=== PATIENT | female | born 1985 | race Two or more races ===

== ENCOUNTER 2017-10-09 22:08 | Inpatient (IN) | payer OTHER ==
[~2017-10-09] VITALS: Ht 162.6 cm; Wt 70.3 kg
--- NOTE | 2017-10-10 00:18 | NUR ---
32 YO FEMALE BB SELF. PATIENT IS ALERT AND ORIENTED X 3, C/O LEFT WRIST PAIN/ REDNESS/SWELLING. PMS DISTAL TO PAIN SITE WNL. AWAITING ORDERS FROM PROVIDER, WILL CONTINUE TO MONITOR
--- NOTE | 2017-10-10 00:19 | NUR ---
PATIENT AMBULATED TO ER BED 10 WITH STEADY GAIT, SKIN WARM AND DRY, RESP EVEN AND UNLABORED. AWAITING ORDERS FROM PROVIDER, WILL CONTINUE TO MONITOR
[2017-10-10] MEDS ORDERED: MORPHINE SULFATE INJ 2 MG/ML DISP.SYRIN IV ONE (00:30)
[2017-10-10] MEDS ORDERED: PIPERACILLIN /TAZOBACTAM 3.375 G in IV D5W 50 ML IV ONE (00:30)
[2017-10-10] MEDS ORDERED: IV NS 0.9% 1,000 ML BAG IV ONE (00:30)
[2017-10-10] MEDS ORDERED: ONDANSETRON HCL/PF 4 MG/2 ML VIAL IVP ONE (00:30)
[2017-10-10] MEDS ORDERED: VANCOMYCIN 1 GM in IV D5W 250 ML IV ONE ×5 (00:30→02:00)
--- NOTE | 2017-10-10 00:30 | NUR ---
YAKOV NG IS AT THE BEDSIDE SPEAKING TO THE PT.
--- NOTE | 2017-10-10 00:36 | NUR ---
PT AMBULATED TO THE BATHROOM WITH A STEADY GAIT. PT TRYING TO GIVE A URINE SAMPLE.
[2017-10-10] MEDS ORDERED: ONDANSETRON HCL/PF 4 MG/2 ML VIAL ONE ×2 (00:38→00:43)
[2017-10-10] MEDS ORDERED: MORPHINE SULFATE INJ 4 MG/ML DISP.SYRIN ONE ×2 (00:39→00:43)
[2017-10-10] MEDS ORDERED: PIPERACILLIN /TAZOBACTAM 3.375 G VIAL IV ONE ×2 (00:39→00:43)
[2017-10-10] MEDS ORDERED: VANCOMYCIN 1 GM VIAL ONE ×2 (00:39→00:43)
[2017-10-10] MEDS ORDERED: ACETAMINOPHEN ES 500 MG TABLET ONE ×2 (00:40→00:43)
--- NOTE | 2017-10-10 00:50 | NUR ---
URINE COLLECTED. SENT TO LAB
--- NOTE | 2017-10-10 00:52 | NUR ---
WOUNC CULTURE FOR LEFT WRIST COLLECTED. CALLED LAB FOR ACIDIZER WATER WELL.
--- NOTE | 2017-10-10 00:54 | NUR ---
RADIOLOGY AT BEDSIDE FOR HAND XR
[2017-10-10] MEDS ORDERED: ACETAMINOPHEN 325 MG TABLET PO ONE (01:00)
[2017-10-10 01:01] LABS: BASOPHILS # (AUTO) 0.1 /CMM (0.0-0.2); BASOPHILS % (AUTO) 0.5 % (0.0-2.0); EOSINOPHILS % (AUTO) 0.2 % (0.0-6.0); HEMATOCRIT 36 % (33-45); HEMOGLOBIN 11.9 g/dL (11.5-14.8); LYMPHOCYTES # (AUTO) 1.7 /CMM (0.8-4.8); LYMPHOCYTES % (AUTO) 10.8 % (20.0-44.0); MEAN CORPUSCULAR HEMOGLOBIN 28 PG (26.0-33.0); MEAN CORPUSCULAR HGB CONC 33 g/dl (31.0-36.0); MEAN CORPUSCULAR VOLUME 84 fL (82-100); MONOCYTES # (AUTO) 0.9 /CMM (0.1-1.30); MONOCYTES % (AUTO) 5.9 % (2.0-12.0); NEUTROPHILS # (AUTO) 13.2 /CMM (1.8-8.9); NEUTROPHILS % (AUTO) 82.6 % (43.0-81.0); PLATELET COUNT (AUTO) 254 /CMM (150-450); RDW COEFFICIENT OF VARIATION 13.8 (11.5-15.0); RED BLOOD CELL COUNT(AUTO) 4.26 MIL/uL (4.0-5.2)
[2017-10-10 01:06] LABS: APPEARANCE,URINE CLOUDY (CLEAR); BILIRUBIN,URINE 1+ (NEGATIVE); BLOOD, URINE 3+ Ery/uL (NEGATIVE); KETONES,URINE 1+ (NEGATIVE); LEUKOCYTE ESTERASE ,URINE TRACE (NEGATIVE); NITRITE, URINE NEGATIVE (NEGATIVE); PROTEIN,URINE 1+ mg/dl (NEGATIVE); UGLUCOSE NEGATIVE (NEGATIVE); UROBILINOGEN,URINE 0.2 EU/dL (0.2)
[2017-10-10 01:07] LABS: COLOR,URINE DARK YELLOW (YELLOW)
[2017-10-10 01:10] LABS: CALCIUM, SERUM 8.5 mg/dL (8.5-10.1); CREATININE 0.9 mg/dL (0.6-1.3); POTASSIUM 3.2 mmol/L (3.5-5.1)
[2017-10-10 01:11] LABS: BACTERIA,URINE Many /HPF (None Seen); CALCIUM OXALATE CRYSTALS,UR Few /HPF (None Seen); RBC,URINE TOO NUMEROUS TO COUN /HPF (0-2); SQUAMOUS EPITHELIAL CELL,UR Many /HPF (None Seen)
[2017-10-10 01:16] LABS: ALBUMIN 3.8 g/dL (3.4-5.0); BILIRUBIN,DIRECT 0.1 mg/dL (0.0-0.2); BILIRUBIN,TOTAL 0.5 mg/dL (0.2-1.0); TOTAL PROTEIN, SERUM 7.8 g/dL (6.4-8.2)
--- NOTE | 2017-10-10 01:18 | NUR ---
DR. GAYATHRI JUAREZ PEGED PER ER MD ORDER.
--- NOTE | 2017-10-10 01:20 | NUR ---
ER TALKING TO DR. GAYATHRI JUAREZ REGARDING PT ADMISSION.
--- NOTE | 2017-10-10 01:20 | NUR ---
CALLED FOR M/S BED
[2017-10-10] MEDS ORDERED: HYDROMORPHONE INJ 0.5 MG/0.5 ML SYRINGE ONE (01:24)
--- NOTE | 2017-10-10 01:27 | NUR ---
REPORT CALLED TO M/S LIYA JORDAN.
[2017-10-10] MEDS ORDERED: MAG HYDROX/AL HYDROX/SIMETH 30 ML UDC PO PRN (01:30)
[2017-10-10] MEDS ORDERED: HYDROMORPHONE 1 MG/1 ML DISP.SYRIN IV ONE (01:30)
[2017-10-10] MEDS ORDERED: VANCOMYCIN 1 GM in IV D5W 250 ML IV SCH (01:30)
[2017-10-10] MEDS ORDERED: MAGNESIUM HYDROXIDE 30 ML UDC PO PRN (01:30)
[2017-10-10] MEDS ORDERED: ONDANSETRON HCL/PF 4 MG/2 ML VIAL IVP PRN (01:30)
[2017-10-10] MEDS ORDERED: HYDROCODONE/APAP 5/325MG 1 EACH TABLET PO PRN (01:30)
[2017-10-10] MEDS ORDERED: ACETAMINOPHEN 325 MG TABLET PO PRN (01:30)
--- NOTE | 2017-10-10 01:44 | NUR ---
PT TRANSFERRED TO MS FLOOR.
--- NOTE | 2017-10-10 01:55 | NUR ---
MS2/RN RECEIVE PATIENT FROM [facility].. [facility]. PATIENT SLEEPING AT THIS TIME, AROUSABLE, APPEAR COMFORTABLE, NO SIGNS OF DISTRESS NOTED, VANCOMYCIN IS INFUSING, UNABLE TO OBTAIN ADMISSION INFORMATIONS FROM THE PATIENT AT THIS TIME SHE REFUSES TO ANSWER QUESTIONS DUE TO SLEEPINESS/LETHARGY WILL TRY AGAIN LATER WHEN SHE IS MORE AWAKE, MADE COMFORTABLE IN BED, PLACED CALL LIGHT IN REACH. WILL MONITOR.
[2017-10-10] MEDS: IV NS 0.9% 1,000 ML IV PRN ×2 (02:28→19:55)
[2017-10-10] MEDS ORDERED: PIPERACILLIN /TAZOBACTAM 2.25 G VIAL IV ONE (03:11)
[2017-10-10] MEDS ORDERED: PIPERACILLIN /TAZOBACTAM 4.5 G in IV NS 0.9% 50 ML IV SCH (06:00)
--- NOTE | 2017-10-10 06:09 | NUR ---
MS2/RN PATIENT STILL SLEEPING AT THIS TIME, AROUSABLE, APPEAR COMFORTABLE, NO SIGNS OF DISTRESS NOTED, ALL NEEDS ATTENDED AT THIS TIME. UNABLE TO OBTAIN ADMISSION INFORMATION, UNABLE TO ASSESS SKIN PATIENT ASLEEP ALL THE SINCE ARRIVAL TO THE UNIT. WILL ENDORSE.
--- NOTE | 2017-10-10 06:48 | NUR ---
MS2/RN ABLE TO TAKE PICTURE OF THE SWELLING OF THE LEFT HAND BUT REFUSED STILL REFUSED PHYSICAL ASSESSMENT AT THIS TIME. WILL ENDORSE.
--- NOTE | 2017-10-10 07:30 | NUR ---
RN MS NOTES PT IN BED, ASLEEP, RESPIRATIONS NORMAL AND NOT LABORED, EASY TO AROUSE, NO COMPLAINT OF PAIN AT THIS TIME, RESPISRATIONS NORMAL AND NOT LABORED, IV FLUIDS INFUSING WELL, CALL LIGHT PLACED WITHIN EASY REACH.
[2017-10-10 08:00] VITALS: BP 103/65
--- NOTE | 2017-10-10 08:00 | NUR ---
RN MS NOTES PT IN BED, CRYING, GIRLFRIEND AT BEDSIDE, COMPLAINING OF PAIN AT LEFT HAND BUT REFUSES ANY PAIN MEDICATION AT THIS TIME, PT CURSING AND USING THE "F" WORD A LOT OF TIMES, EXPLAINED PLAN OF CARE TO THE PT, EXPLAINED RISKS AND BENEFITS OF RECEIVING IV ATB, AFTER A WHILE PT CALMED DOWN AND TOOK A REST IN BED.
[2017-10-10] MEDS ORDERED: FEE PK DOSING 1 MIN EA MC ONE (08:21)
[2017-10-10] MEDS: VANCOMYCIN 0.75 GM in IV D5W 250 ML IV SCH ×2 (10:04→19:46)
[2017-10-10] MEDS: POTASSIUM CHLORIDE 20 MEQ TAB.PRT.SR PO SCH ×2 (11:26→12:12)
--- NOTE | 2017-10-10 13:00 | NUR ---
RN MS NOTES PT IN BED, ASLEEP, NO SIGN OF PAIN OR DISTRESS, ACCOMPANIED PT TO SMOKE EARLIER, PT INFORMED OF RISKS AND BENEFITS, INFORMED OF HOSPITAL POLICY REGARDING SMOKING, VERBALIZED UNDERSTANDING, PT SIGNED SMOKING WAIVER FORM, IV ATB GIVEN ORDERED, STILL WITH REDNESS AND SWELLING TO LEFT HAND, WITH MINIMAL DRAIN NOTED, DRY DRESSING APPLIED, CALL LIGHT WITHIN REACH.
[2017-10-10] MEDS: PIPERACILLIN /TAZOBACTAM 3.375 G in IV D5W 50 ML IV SCH ×3 (13:35→23:55)
[2017-10-10 16:00] VITALS: BP 104/59
--- NOTE | 2017-10-10 18:00 | NUR ---
RN MS NOTES PT STATED THAT SHE WANTS TO GO AGAINST MEDICAL ADVICE, PT AGITATED STATED THAT SHE IS NOT GETTING CARE IN THIS HOSPITAL, EXPLAINED PLAN OF CARE TO THE PT SEVERAL TIMES BUT STILL SAYS THAT NOBODY IS DOING SOMETHING FOR HER HAND, PT DOES NOT WANT TO SIGN AMA FORM, IV LINE TAKEN OUT, PT PREPARED TO LEAVE, EXPLAINED AGAIN THE PLAN OF CARE TO THE PT, PT CALMED DOWN AND SAID SHE WILL STAY, MONITORED PT CLOSELY.
--- NOTE | 2017-10-10 19:53 | NUR ---
MS2/RN C/O PAIN 03/29 LEFT WRIST, MEDICATED WITH NORCO 1 TAB PO ORDERED. WILL MONITOR.
[2017-10-10 20:00] VITALS: BP 102/76
--- NOTE | 2017-10-10 22:10 | NUR ---
NS2/RN PATIENT IS SLEEPING AT THIS TIME, AROUSES EASILY, APPEAR COMFORTABLE, NO DISTRESS NOTED, CALL LIGHT IN REACH. WILL CONTINUE TO MONITOR.
[2017-10-11] MEDS: VANCOMYCIN 0.75 GM in IV D5W 250 ML IV SCH (03:03)
[2017-10-11] MEDS: IV NS 0.9% 1,000 ML IV PRN (03:08)
[2017-10-11] MEDS: PIPERACILLIN /TAZOBACTAM 3.375 G in IV D5W 50 ML IV SCH (05:42)
[2017-10-11 06:27] LABS: BASOPHILS % (AUTO) 0.5 % (0.0-2.0); EOSINOPHILS # (AUTO) 0.1 /CMM (0.0-0.7); EOSINOPHILS % (AUTO) 1.2 % (0.0-6.0); HEMATOCRIT 31 % (33-45); HEMOGLOBIN 10.5 g/dL (11.5-14.8); MEAN CORPUSCULAR HEMOGLOBIN 29 PG (26.0-33.0); MEAN CORPUSCULAR HGB CONC 34 g/dl (31.0-36.0); MEAN CORPUSCULAR VOLUME 86 fL (82-100); MONOCYTES # (AUTO) 0.5 /CMM (0.1-1.30); MONOCYTES % (AUTO) 8.8 % (2.0-12.0); NEUTROPHILS # (AUTO) 3.3 /CMM (1.8-8.9); NEUTROPHILS % (AUTO) 55.5 % (43.0-81.0); PLATELET COUNT (AUTO) 195 /CMM (150-450); RDW COEFFICIENT OF VARIATION 14.1 (11.5-15.0); RED BLOOD CELL COUNT(AUTO) 3.65 MIL/uL (4.0-5.2)
[2017-10-11 06:52] LABS: CALCIUM, SERUM 7.7 mg/dL (8.5-10.1); CREATININE 0.6 mg/dL (0.6-1.3); MAGNESIUM 2.1 mg/dL (1.8-2.4); PHOSPHORUS 3.2 mg/dL (2.5-4.9); POTASSIUM 3.9 mmol/L (3.5-5.1)
[2017-10-11 06:59] LABS: THYROID STIMULATING HORMONE 0.619 uIU/mL (0.358-3.74)
--- NOTE | 2017-10-11 07:28 | NUR ---
MS2/RN PATIENT STILL SLEEPING AT THIS TIME, AROUSABLE, APPEAR COMFORTABLE, NO SIGNS OF DISTRESS NOTED, CALL LIGHT IN REACH. ALL NEEDS ATTENDED AT THIS TIME. WILL CONTINUE TO MONITOR.
[2017-10-11 08:00] VITALS: BP 119/68
--- NOTE | 2017-10-11 11:20 | NUR ---
RN MS NOTES PT SEEN BY DR. LUCAS, PT DENIES PAIN, NOT IN DISTRESS, DISCHARGE ORDER GIVEN, DISCHARGE AND MEDICATION INSTRUCTIONS PROVIDED TO PT, PT TO FOLLOW UP WITH DR. LUCAS [facility], VERBALIZED UNDERSTANDING, PRESCRIPTION PROVIDED TO PT, BELONGINGS ACCOUNTED FOR, PT REFUSED BODY CHECK AND PHOTOS OF LEFT HAND, OFFERED FLU SHOT BUT PT REFUSED WELL, LEFT IN STABLE CONDITION, ACCOMPANIED BY FRIEND.
[2017-10-11] MEDS ORDERED: SULF1TAB48 PO (11:43)
== END 2017-10-11 11:20 | disposition home or self-care (01) | DRG 383 ==
LOC: ER 22:08 → MEDSG2 10-10 01:29
DX: L03.114 Cellulitis of left upper limb (principal); F15.10 Other stimulant abuse, uncomplicated; E66.9 Obesity, unspecified; F17.210 Nicotine dependence, cigarettes, uncomplicated; Z68.26 Body mass index [BMI] 26.0-26.9, adult
CPT/HCPCS: 36415; 73110; 73130-TC; 80048-TC; 80061-TC; 80076-TC; 80202-TC; 81000-TC; 83605-TC; 83735-TC; 84100-TC; 84443-TC; 84703-TC; 85025-TC; 87040-TC; 87081-TC; 87086-TC; A4216; A4606; J2270; J2405; J2543; J3370; J7030; J7060; Z7610

== ENCOUNTER 2020-02-09 23:55 | Emergency (ER) | payer MEDICAID, OTHER ==
[~2020-02-09] VITALS: Ht 162.6 cm; Wt 63.5 kg
[~2020-02-09 23:55] MED LIST: SULF1TAB48 PO
[2020-02-10 00:15] VITALS: BP 142/86
== END 2020-02-10 02:37 | disposition home or self-care (01) ==
LOC: ER 23:58
DX: H92.01 Otalgia, right ear (principal)

== ENCOUNTER 2020-02-15 02:21 | Emergency (ER) | payer MEDICAID ==
[~2020-02-15] VITALS: Ht 165.1 cm; Wt 63.5 kg
--- NOTE | 2020-02-15 02:56 | NUR ---
PATIENT CAME TO ER BED 11 C/O RIGHT EAR PAIN. PATIENT STATES THAT SHE BURNED HER RIGHT EAR WITH A CURLING IRON AND IT FELT WORSE. PATIENT STATES THAT SHE TOOK TRAMADOL FOR PAIN WITHOUT RELIEF. AREA HAS A BURN WOUND ON THE ANTIHELIX AND ALFONSO. NO BLEEDING FROM THE SITE. NO SWELLING NOTED. AAOX4. NO SOB. BREATHING EVENLY AND UNLABORED ON ROOM AIR.
[2020-02-15] MEDS ORDERED: KETOROLAC TROMETHAMINE INJ 30 MG/ML VIAL IM ONE (03:00)
[2020-02-15] MEDS ORDERED: KETOROLAC TROMETHAMINE 15 MG/ML VIAL ONE (03:02)
[2020-02-15 03:27] VITALS: BP 132/76
--- NOTE | 2020-02-15 03:27 | NUR ---
Patient discharged to home in stable condition. Written and verbal after care instructions given. Patient verbalizes understanding of instruction.
== END 2020-02-15 03:28 | disposition home or self-care (01) ==
LOC: ER 02:22
DX: H66.91 Otitis media, unspecified, right ear (principal); H72.91 Unspecified perforation of tympanic membrane, right ear; H60.91 Unspecified otitis externa, right ear; F17.200 Nicotine dependence, unspecified, uncomplicated; Z79.899 Other long term (current) drug therapy
CPT/HCPCS: 96372; 99283; J1885

== ENCOUNTER → 2021-01-31 | Emergency (ER) | payer OTHER ==
[~2021-01-31] VITALS: Ht 165.1 cm; Wt 70.8 kg
[~2021-01-31] MED LIST changes: +CEPH500C2 PO; +IV NS 0.9% 1,000 ML BAG IV ONE; +ONDA4TAB11 PO; +ONDANSETRON HCL/PF 4 MG/2 ML VIAL IVP ONE; +ONDANSETRON HCL/PF 4 MG/2 ML VIAL ONE
--- NOTE | 2021-01-31 18:25 | NUR ---
[id number] OFFICE C/O NAUSEA AND VOMITING X 2 DAYS. STS FEELING DEHYDRATED AND MIGHT BE . PATIENT A/OX4, RUDE TO STAFF. BREATHING EVEN AND UNLABORED, NO SOB NOTED.
--- NOTE | 2021-01-31 18:48 | NUR ---
iv line established, blood drawn and sent to lab.
--- NOTE | 2021-01-31 18:50 | NUR ---
URINE SENT TO LAB.
[2021-01-31 18:51] LABS: BASOPHILS # (AUTO) 0.1 /CMM (0.0-0.2); BASOPHILS % (AUTO) 0.5 % (0.0-2.0); EOSINOPHILS % (AUTO) 0.2 % (0.0-6.0); HEMATOCRIT 42 % (33-45); HEMOGLOBIN 13.4 g/dL (11.5-14.8); LYMPHOCYTES # (AUTO) 1.4 /CMM (0.8-4.8); LYMPHOCYTES % (AUTO) 11.6 % (20.0-44.0); MEAN CORPUSCULAR HGB CONC 32 g/dl (31.0-36.0); MEAN CORPUSCULAR VOLUME 88 fL (82-100); MONOCYTES # (AUTO) 0.7 /CMM (0.1-1.30); MONOCYTES % (AUTO) 5.6 % (2.0-12.0); NEUTROPHILS # (AUTO) 10.1 /CMM (1.8-8.9); NEUTROPHILS % (AUTO) 82.1 % (43.0-81.0); PLATELET COUNT (AUTO) 281 /CMM (150-450); RED BLOOD CELL COUNT(AUTO) 4.73 MIL/uL (4.0-5.2); WHITE BLOOD COUNT (AUTO) 12.3 K/uL (4.3-11.0)
--- NOTE | 2021-01-31 18:52 | NUR ---
IV #18 GAUGE MARIA R, IV NS 1,000 NS ORDER ADMIN, STATED FEELS DEHYDRATED HAS HEAD ACHE, IS TIRED, BED LOW TO FLOOR, MADE COMFORTABLE , WILL CONTINUE TO MONITOR
[2021-01-31 19:03] LABS: CALCIUM, SERUM 9.3 mg/dL (8.5-10.1); CREATININE 0.8 mg/dL (0.6-1.3); POTASSIUM 3.9 mmol/L (3.5-5.1)
[2021-01-31 19:09] LABS: ALBUMIN 4.2 g/dL (3.4-5.0); BILIRUBIN,DIRECT 0.1 mg/dL (0.0-0.2); BILIRUBIN,TOTAL 0.4 mg/dL (0.2-1.0)
[2021-01-31 19:10] LABS: BILIRUBIN,URINE Negative (NEGATIVE); COLOR,URINE DARK YELLOW (YELLOW); LEUKOCYTE ESTERASE ,URINE Negative (NEGATIVE); NITRITE, URINE Positive (NEGATIVE); PROTEIN,URINE 30 mg/dl (NEGATIVE); UGLUCOSE Negative (NEGATIVE); UROBILINOGEN,URINE 0.2 EU/dL (0.2)
--- NOTE | 2021-01-31 19:15 | NUR ---
RECEIVED REOPORT FROM DAY SHIFT NURSE FOR INESSA, PATIENT RESTING IN BED. WILL CONTINUE TO MONITOR.
[2021-01-31 19:17] LABS: BACTERIA,URINE Many /HPF (None Seen); CALCIUM OXALATE CRYSTALS,UR Few /HPF (None Seen); SQUAMOUS EPITHELIAL CELL,UR Few /HPF (None Seen)
[2021-01-31 19:40] VITALS: BP 135/69
--- NOTE | 2021-01-31 19:41 | NUR ---
Patient discharged to home in stable condition. Rx AND Written and verbal after care instructions given. Patient verbalizes understanding of instruction.
== END | disposition home or self-care (01) ==
LOC: ER 18:13
DX: R11.0 Nausea (principal); N39.0 Urinary tract infection, site not specified; F17.200 Nicotine dependence, unspecified, uncomplicated
CPT/HCPCS: 36415; 80048; 80076; 81001; 83690; 84703; 85025; 87086; 96361; 96374; 99283; J2405; J7030

== ENCOUNTER 2022-07-17 19:57 | Emergency (ER) | payer MEDICAID, OTHER ==
[~2022-07-17] VITALS: Ht 165.1 cm; Wt 63.5 kg
[~2022-07-17 19:57] MED LIST changes: -IV NS 0.9% 1,000 ML BAG IV ONE; -ONDANSETRON HCL/PF 4 MG/2 ML VIAL IVP ONE; -ONDANSETRON HCL/PF 4 MG/2 ML VIAL ONE
--- NOTE | 2022-07-17 21:45 | NUR ---
BIBSELF FROM HOME C/O ABD RUQ PAIN X4 DAYS. +N/V. AMBULATORY, PLACED ON BED, INPAIN 05/29 PS
--- NOTE | 2022-07-17 22:00 | NUR ---
URINE SAMPLE SENT TO LAB
[2022-07-17] MEDS ORDERED: ACETAMINOPHEN ES 500 MG TABLET ONE (22:26)
[2022-07-17] MEDS ORDERED: FAMOTIDINE/PF INJ 20 MG/2 ML VIAL IV ONE ×2 (22:26→22:30)
[2022-07-17] MEDS ORDERED: ONDANSETRON HCL/PF 4 MG/2 ML VIAL ONE (22:26)
[2022-07-17] MEDS ORDERED: ACETAMINOPHEN ES 500 MG TABLET PO ONE (22:30)
[2022-07-17] MEDS ORDERED: ONDANSETRON HCL/PF 4 MG/2 ML VIAL IVP ONE (22:30)
[2022-07-17] MEDS ORDERED: IV NS 0.9% 1,000 ML BAG IV ONE (22:30)
--- NOTE | 2022-07-17 22:41 | NUR ---
REMIND DR CONTRERAS ABOUT THE PELVIC EXAM. HE SAID NOT NECESSARY AT THE MOMENT.
--- NOTE | 2022-07-17 22:49 | NUR ---
BLOOD DRAWN AND SENT TO LAB
[2022-07-17 23:21] LABS: BASOPHILS % (AUTO) 0.3 % (0.0-2.0); EOSINOPHILS % (AUTO) 0.6 % (0.0-6.0); HEMATOCRIT 35 % (33-45); HEMOGLOBIN 11.4 g/dL (11.5-14.8); LYMPHOCYTES # (AUTO) 1.4 K/uL (0.8-4.8); LYMPHOCYTES % (AUTO) 16.2 % (20.0-44.0); MEAN CORPUSCULAR HGB CONC 33 g/dl (31.0-36.0); MEAN CORPUSCULAR VOLUME 86 fL (82-100); MONOCYTES # (AUTO) 0.7 K/uL (0.1-1.30); MONOCYTES % (AUTO) 7.9 % (2.0-12.0); NEUTROPHILS # (AUTO) 6.7 K/uL (1.8-8.9); PLATELET COUNT (AUTO) 294 K/uL (150-450); RED BLOOD CELL COUNT(AUTO) 4.08 MIL/uL (4.0-5.2); WHITE BLOOD COUNT (AUTO) 8.9 K/uL (4.3-11.0)
[2022-07-17 23:45] LABS: CALCIUM, SERUM 8.7 mg/dL (8.5-10.1); CREATININE 0.7 mg/dL (0.6-1.3); POTASSIUM 4.2 mmol/L (3.5-5.1)
[2022-07-17 23:53] LABS: BILIRUBIN,URINE NEGATIVE (NEGATIVE); COLOR,URINE YELLOW (YELLOW); LEUKOCYTE ESTERASE ,URINE TRACE (NEGATIVE); NITRITE, URINE POSITIVE (NEGATIVE); PH,URINE 6.5 (5.0-8.0); PROTEIN,URINE NEGATIVE (NEGATIVE); UGLUCOSE NEGATIVE (NEGATIVE); UROBILINOGEN,URINE 0.2 EU/dL (0.2)
[2022-07-17 23:56] LABS: BILIRUBIN,TOTAL 0.1 mg/dL (0.2-1.0)
--- NOTE | 2022-07-18 00:17 | NUR ---
BROUGHT TO CT DEPT
[2022-07-18 00:33] LABS: BACTERIA,URINE Few /HPF (None Seen); RBC,URINE 0-2 /HPF (0-2); WBC,URINE 0-2 /HPF (0-3)
[2022-07-18 00:34] LABS: SQUAMOUS EPITHELIAL CELL,UR Rare /HPF (None Seen); URINE AMORPHOUS URATE Many /HPF (None Seen)
[2022-07-18] MEDS ORDERED: IOHEXOL-300 100 ML VIAL IV ONE (03:07)
[2022-07-18] MEDS ORDERED: IV NS 0.9% 250 ML IV ONE (03:07)
[2022-07-18] MEDS ORDERED: CT SWABBABLE VALVE TRANS SET 1 EA INFUS.SET MC ONE (03:07)
--- NOTE | 2022-07-18 03:55 | NUR ---
IVY ESTRADA AT BEDSIDE.
--- NOTE | 2022-07-18 04:13 | NUR ---
CAME BACK FROM CT SCAN FOR CT ANGIO
--- NOTE | 2022-07-18 05:02 | NUR ---
MD CONTRERAS ON PHONE WITH SURGEON DR HERNANDEZ
[2022-07-18] MEDS ORDERED: IBUP-1953 PO (05:06)
--- NOTE | 2022-07-18 05:17 | NUR ---
IV removed. Catheter intact and site benign. Pressure and 4x4 applied to site. No bleeding noted.Patient discharged to home in stable condition. Rx and Written and verbal after care instructions given. Patient verbalizes understanding of instruction.
[2022-07-18 05:45] VITALS: BP 139/79
== END 2022-07-18 05:17 | disposition home or self-care (01) ==
LOC: ER 20:11
DX: K55.069 Acute infarction of intestine, part and extent unspecified (principal); R10.30 Lower abdominal pain, unspecified; R11.2 Nausea with vomiting, unspecified; Z79.899 Other long term (current) drug therapy
CPT/HCPCS: 99285; 74176; 96374; 96361; 96375; 85025; 80048; 87086; 83690; 80076; 84703; 81001; 36415; 74177; 76705; J3490; J2405; J7030; J7050; Q9967

== ENCOUNTER 2022-12-16 20:35 | Emergency (ER) | payer SELFPAY ==
[~2022-12-16 20:35] MED LIST changes: +IBUP-1953 PO
--- NOTE | 2022-12-16 20:56 | NUR ---
called for triage not in the waiting room.
--- NOTE | 2022-12-16 21:17 | NUR ---
called for triage not in the waiting room
--- NOTE | 2022-12-16 21:26 | NUR ---
called for triage not in the waiting room.
== END 2022-12-16 21:33 | disposition left against medical advice (07) ==
LOC: ER 20:42
DX: Z53.21 Procedure and treatment not carried out due to patient leaving prior to being seen by health care provider (principal)